=== PATIENT | male | born 1955 | race Caucasian/White ===

== ENCOUNTER 2022-04-12 18:43 | Inpatient (IN) | payer OTHER, MEDICAID ==
[~2022-04-12] VITALS: Ht 162.6 cm; Wt 68.0 kg
[2022-04-12] MEDS ORDERED: NOREPINEPHRINE 4 MG/4 ML VIAL IV ONE ×2 (19:11→20:55)
[2022-04-12] MEDS ORDERED: NACL 0.9% 2,000 ML IV ONE (19:15)
[2022-04-12] MEDS ORDERED: NOREPINEPHRINE BITARTRATE 4 MG in NS 246 ML IV ONE (19:15)
[2022-04-12 19:24] VITALS: BP_SYST 88
--- NOTE | 2022-04-12 19:30 | NUR ---
PT BIBA FROM SNF FOR RESP DISTRESS REPORT RECIEVED FROM DAY [facility] DR. REEVES AT BEDSIDE RT AT BEDSIDE PT PLACED ON 15L O2 NRB O2SAT 80% DR. REEVES DISCUSSING CODE STATUS WITH FAMILY
[2022-04-12 19:33] LABS: BASOPHILS % (AUTO) 0.3 % (0.0-2.0); EOSINOPHILS # (AUTO) 0.2 K/uL (0.0-0.4); EOSINOPHILS % (AUTO) 2.9 % (0.0-4.0); HEMATOCRIT 26.9 % (36-54); HEMOGLOBIN 8.9 g/dL (14.0-18.0); LYMPHOCYTES # (AUTO) 0.9 K/uL (1.0-5.5); LYMPHOCYTES % (AUTO) 17.7 % (20.5-51.5); MEAN CORPUSCULAR HEMOGLOBIN 29 pg (27-31); MEAN CORPUSCULAR HGB CONC 33 % (32-36); MEAN CORPUSCULAR VOLUME 88 fL (79.0-98.0); MONOCYTES # (AUTO) 0.4 K/uL (0.0-1.0); MONOCYTES % (AUTO) 7.6 % (1.7-9.3); NEUTROPHILS # (AUTO) 3.7 K/uL (1.8-7.7); NEUTROPHILS % (AUTO) 71.5 % (40.0-70.0); PLATELET COUNT (AUTO) 218 K/uL (130-430); RED BLOOD CELL COUNT(AUTO) 3.04 MIL/uL (4.2-6.2); RED CELL DISTRIBUTION WIDTH 16.4 % (9.0-15.0); WHITE BLOOD COUNT (AUTO) 5.2 K/uL (4.8-10.8)
[2022-04-12 19:47] LABS: ANION GAP 9 (5-15); CALCIUM 8.7 mg/dL (8.4-11.0); CHLORIDE 98 mmol/L (98-107); CREATININE 1.37 mg/dL (0.55-1.30); GLUCOSE 281 mg/dL (70-99); UREA NITROGEN, BLOOD 45 mg/dL (8-21)
[2022-04-12 19:49] LABS: GFR AFRICAN AMERICAN 67 mL/min (>90)
[2022-04-12 19:53] LABS: ALANINE AMINOTRANSFERASE 18 U/L (12-78); ALBUMIN 2.3 g/dL (3.4-4.8); ASPARTATE AMINOTRANSFERASE 15 U/L (10-37); TOTAL BILIRUBIN 0.4 mg/dL (0.0-1.0)
--- NOTE | 2022-04-12 20:00 | NUR ---
PT PLACED ON BIPAP O2 SAT IMPROVED TO 90%
--- NOTE | 2022-04-12 20:10 | NUR ---
PER FAMILY PT AT SNF FOR MULTIPLE CVA AFFECTING ADLS. PT NONVERBAL AT THIS TIME
--- NOTE | 2022-04-12 20:30 | NUR ---
FAMILY AT BEDSIDE
--- NOTE | 2022-04-12 20:52 | NUR ---
MRSA COVID URINE DONE
[2022-04-12] MEDS ORDERED: cefTRIAXone 1 GM IVPB PREMIX 50 ML IV ONE (21:00)
[2022-04-12 21:18] LABS: BILIRUBIN,URINE NEGATIVE (NEGATIVE); BLOOD, URINE NEGATIVE (NEGATIVE); CLARITY/URINE CLEAR (CLEAR); COLOR,URINE YELLOW (YELLOW); GLUCOSE,URINE 1+ (NEGATIVE); KETONES,URINE NEGATIVE (NEGATIVE); LEUKOCYTE ESTERASE ,URINE NEGATIVE (NEGATIVE); NITRITE, URINE NEGATIVE (NEGATIVE); PH,URINE 8.5 (5.0-8.0); PROTEIN URINE 2+ (NEGATIVE)
[2022-04-12 21:25] LABS: BACTERIA,URINE None Seen /HPF (None Seen); MUCUS,URINE None Seen /LPF (None Seen); RBC,URINE 0-3 /HPF (0-3); WBC,URINE 0-3 /HPF (0-3)
--- NOTE | 2022-04-12 22:00 | NUR ---
ASSUME CARE OF THIS PATIENT AWAKE AND ALERT, NO S/S DISTRESS AT THIS TIME ON BIPAP SUPPORT. NOTED LEVOPHED DRIP PER PROTOCOL.
--- NOTE | 2022-04-12 22:15 | NUR ---
PT REPOSITIONED TO RIGHT SIDE, NOTED PRESSURE ULCER STAGE 3 TO COCCYX AND LT UPPER BACK AREA.
--- NOTE | 2022-04-12 22:20 | NUR ---
Jose ellsworth in [facility] - 04/13/22 at 0023 by [email or web address] PT BLOOD GLUCOSE 199
[2022-04-12] MEDS ORDERED: POTASSIUM CHLORIDE 20 MEQ TAB.PRT.SR PO PRN (22:30)
[2022-04-12] MEDS ORDERED: ACETAMINOPHEN 325 MG TABLET PO PRN (22:30)
[2022-04-12] MEDS ORDERED: ONDANSETRON HCL 4 MG/2 ML VIAL IVP PRN (22:30)
[2022-04-12] MEDS ORDERED: DEXTROSE 50% JECT 50 ML DISP.SYRIN IVP PRN (22:30)
[2022-04-12] MEDS ORDERED: MUPIROCIN 2% TOPICAL OINTMENT 22 GM NS PRN (22:30)
[2022-04-12] MEDS ORDERED: ZOLPIDEM TARTRATE 5 MG TABLET PO PRN (22:30)
[2022-04-12] MEDS ORDERED: LORazepam 2 MG/ML VIAL IVP PRN (22:30)
[2022-04-12] MEDS ORDERED: MORPHINE 2 MG/ML INJ. SYRINGE IVP PRN ×2 (22:30)
[2022-04-12] MEDS ORDERED: MAGNESIUM SULFATE 50 ML IV PRN (22:30)
[2022-04-12] MEDS ORDERED: DOCUSATE SODIUM 100 MG CAPSULE PO PRN (22:30)
[2022-04-12] MEDS: PIPERACILLIN/TAZOBACTAM 2.25 GM in NS 50 ML IV SCH (22:30)
--- NOTE | 2022-04-12 23:00 | NUR ---
PT MEDICATED PER EMAR. WILL CONTINUE TO MONITOR. VSS AT THIS TIME
[2022-04-12] MEDS ORDERED: PIPERACILLIN/TAZOBACTAM 2.25 GM VIAL IV ONE (23:14)
--- NOTE | 2022-04-12 23:20 | NUR ---
PT BLOOD GLUCOSE 199
[2022-04-12] MEDS: FUROSEMIDE 40 MG/4 ML VIAL IVP SCH (23:45)
[2022-04-13] VITALS (13 sets, daily range): BP systolic 96–131
--- NOTE | 2022-04-13 00:23 | NUR ---
REQUESTED AND GIVEN ANOTHER BLANKET REMAINS WITHOUT C/O PAIN.
[2022-04-13] MEDS: INSULIN LISPRO SLIDING SCALE 100 UNITS/ML, 3 ML VIAL (humaLOG) SUBCUT PRN ×4 (01:48→20:57)
--- NOTE | 2022-04-13 04:17 | NUR ---
WOUND/PRESSURE ULCER STAGE 3 TO COCCYX CLEANES WITH NS PAT DRY, WOUND CULTUE DONE AND SPECIMEN SENT TO LAB
[2022-04-13] MEDS: PIPERACILLIN/TAZOBACTAM 2.25 GM in NS 50 ML IV SCH ×4 (04:27→22:44)
--- NOTE | 2022-04-13 05:04 | NUR ---
CALLED AND SPOKE WITH DR. NARANJO AND INFORMED MD ON PT CURRENT BP OF 91/44. PER MD RE START LEVOPHED DRIP
[2022-04-13] MEDS ORDERED: NOREPINEPHRINE BITARTRATE 4 MG in D5W 246 ML IV PRN (05:15)
[2022-04-13] MEDS ORDERED: NOREPINEPHRINE 4 MG/4 ML VIAL IV ONE (05:24)
--- NOTE | 2022-04-13 07:40 | NUR ---
RECEIVED PT FROM NOC SHIFT RN. ASSUMED CARE. PT IS RESPONSIVE TO PAIN, PERRL. TELEMONITOR IN PLACE READING NSR, PT RECEIVING LEVOPHED AT O.1MCG/KG/MIN. ON BIBPAP- IPAP 14, EPAP 7, RR 16. RESP E/U. SHALLOW. LUNG SOUNDS DIMINISHED BILATERALLY. GTUBE IN PLACE, CLAMPED, SITE WNL. ABDOMEN SOFT, NONTENDER. PERIPHERAL PULSES NORMAL. PT HAS LIBERTY PICC LINE 2 LUMENS. SITE WNL. RFA IV CATH [address] FLUSHED AND PATENT[address] LEONARDO CATH IN PLACE DRAINING CLEAR DARK YELLOW URINE TO GRAVITY. STAT LOCK IN PLACE TO R THIGH. NO S/S OF PAIN OR DISCOMFORT NOTED. SIDERAILS UP X2.
--- NOTE | 2022-04-13 07:49 | NUR ---
B/P 171/98 (139). LEVOPHED TURNED OFF.
[2022-04-13 07:59] LABS: EOSINOPHILS # (AUTO) 0.1 K/uL (0.0-0.4); EOSINOPHILS % (AUTO) 2.3 % (0.0-4.0); HEMATOCRIT 25.6 % (36-54); HEMOGLOBIN 8.5 g/dL (14.0-18.0); LYMPHOCYTES # (AUTO) 1.3 K/uL (1.0-5.5); LYMPHOCYTES % (AUTO) 21.2 % (20.5-51.5); MEAN CORPUSCULAR HEMOGLOBIN 29 pg (27-31); MEAN CORPUSCULAR HGB CONC 33 % (32-36); MEAN CORPUSCULAR VOLUME 88 fL (79.0-98.0); MONOCYTES # (AUTO) 0.6 K/uL (0.0-1.0); MONOCYTES % (AUTO) 10.3 % (1.7-9.3); PLATELET COUNT (AUTO) 211 K/uL (130-430); RED CELL DISTRIBUTION WIDTH 16.7 % (9.0-15.0); WHITE BLOOD COUNT (AUTO) 6.1 K/uL (4.8-10.8)
[2022-04-13] MEDS ORDERED: ONDA4VIA53 GT (08:42)
[2022-04-13] MEDS ORDERED: APIX5TAB4 GT (08:42)
[2022-04-13] MEDS ORDERED: BISA10SU8 (08:42)
[2022-04-13] MEDS ORDERED: NIFE20CA GT (08:42)
[2022-04-13] MEDS ORDERED: VANC1.2525 IV (08:42)
[2022-04-13] MEDS ORDERED: CARV10CP7 GT (08:42)
[2022-04-13] MEDS ORDERED: FERR300S GT (08:42)
[2022-04-13] MEDS ORDERED: INSU100V46 (08:42)
[2022-04-13] MEDS ORDERED: MUC20RT MC (08:42)
[2022-04-13] MEDS ORDERED: ASCO500C18 GT (08:42)
[2022-04-13] MEDS ORDERED: IPRA3AMP9 INH (08:42)
[2022-04-13] MEDS ORDERED: FAMO-268 GT (08:42)
[2022-04-13] MEDS ORDERED: SENN-169 GT (08:42)
[2022-04-13] MEDS ORDERED: DOCU50CA7 GT (08:42)
[2022-04-13] MEDS ORDERED: ATOR40TA68 GT (08:42)
[2022-04-13] MEDS ORDERED: POLY17PO21 GT (08:42)
--- NOTE | 2022-04-13 08:42 | NUR ---
Medication reconciliation completed with information provided by [facility] SUMMARY REPORT. Any prior medication reconciliation on file was reviewed and corrected.
[2022-04-13 08:50] LABS: CALCIUM 9.3 mg/dL (8.4-11.0); CREATININE 1.31 mg/dL (0.55-1.30)
--- NOTE | 2022-04-13 09:35 | NUR ---
PT'S O2 SAT 100%, R/T PLACED FIO2 AT 85% AT THIS TIME.
[2022-04-13 09:39] LABS: BASOPHILS % (AUTO) 0.4 % (0.0-2.0); NEUTROPHILS # (AUTO) 4.1 K/uL (1.8-7.7); NEUTROPHILS % (AUTO) 65.8 % (40.0-70.0)
[2022-04-13] MEDS: FUROSEMIDE 40 MG/4 ML VIAL IVP SCH (09:59)
--- NOTE | 2022-04-13 10:01 | NUR ---
HEPARIN HELD, NO COAGS COMPLETED. ORDERED AT THIS TIME. LASIX IVP GIVEN.
[2022-04-13 10:35] LABS: INR 1.1 (0.80-1.20); PROTHROMBIN TIME 11.7 SECS (9.5-12.5)
[2022-04-13] MEDS ORDERED: PIPERACILLIN/TAZOBACTAM 2.25 GM VIAL IV ONE (11:29)
[2022-04-13] MEDS: HEPARIN SODIUM,PORCINE 5,000 UNITS/ML VIAL SUBCUT SCH ×2 (11:50→20:53)
--- NOTE | 2022-04-13 11:53 | NUR ---
BS 240. REGULAR INSULIN 4 UNITS HELD. PT'S ON BIPAP AND UNABLE TO EAT AT THIS TIME.
--- NOTE | 2022-04-13 12:35 | NUR ---
Patient will be admitted to care of EDGAR STEELE. Admitted to ICU unit. Will go to room 7. Belongings list completed. Complete and up to date summary report printed. SBAR report to be given at bedside with opportunity for questions.
--- NOTE | 2022-04-13 12:40 | NUR ---
Opening note - received patient from E.D. Report from Ivan HERNÁNDEZ, Patient is a 66 year old male that was admitted to [facility] on 04/12 for worsening SOB at [facility]. He was overall declining, lethargic, and distressed. Dx: hypovolemic shock. PMHX: CVA, DVT, dyslipidemia, insulin dependent diabetic, hx afib. On arrival patient was saturating in the 60's was placed on a NRB, then BIPAP. He was also on Levophed for BP management of hypotension. He has a LIBERTY PICC- intact, patent, dressing CDI. PIV: RFA, RW- intact, patent, dressing CDI. No IVF or levophed anymore upon arrival. BP within normal limits. He is non verbal per family he shakes his head and squeezes his hands to indicate what he wants in [facility]. At this time he is asleep on Bipap 13/7 70%. Bradycardia on monitor NSR 57bmp. He has had two large bowel movements on arrival to ICU. chronic g-tube- pending dietary recommendations for feeding. NPO at this time. Gould inserted in E.D. 04/12- intact and draining via gravity. Skin- sacrum stage 2- wound care consulted. Family pending arrival.
--- NOTE | 2022-04-13 13:30 | NUR ---
RT NOTES FIO2 TO 0.70
--- NOTE | 2022-04-13 15:49 | NUR ---
Nutrition Note: RD rounded to ICU and s/w patient RN. Patient is currently NPO, and RN asked for TF recommendations. Estimated nutritional needs based on the following information from h&p: He is bedbound with history of CVA, DVT, dyslipidemia, insulin-dependent diabetic and AFib. Patient is also documented with Stage [address] called ICU and provided verbal recommendations for EN and wound supplements to RN via phone. Nutritional Needs: Estimated Energy Expenditure (kcals/day) 3873-8483 (30-35 kcal/kg for Stage 3 wound healing) Estimated Protein Required (g/day) 82-122 (1.2-1.5 gm/kg for Stage 3 wound healing) Estimated Fluid Required (l/day) 2-2.4 (30-35 mL/kcal for losses from Stage 3 wound) Dietitian Recommendations: * Recommend initiate Glucerna 1.5 at 55mL/hr (goal rate), Min BID; FWF 200mL Q4h via GT Provides daily: 2160 kcals, 114g PRO, 2202 mL Free Water (1002mL EN) Meets: 106% lower kcals, 93% upper PRO, 110% lower fluids * Recommend initiate wound supplements to promote wound healing and reduce LOS: Consider: 500mg VIT C BID, 220mg ZnSO4 BID x 14 days, daily MVI Patient will be seen 04/14 for initial nutrition assessment, per nutrition protocol. Jennie Dailey MPH, RDN
--- NOTE | 2022-04-13 16:12 | NUR ---
Dr. Hinojosa rounded- aware of patient status, spoke with daughter and at bedside. Spoke about intubation vs bipap. Plan is to keep him on Bipap now, intubation if he worsens. NS to start at 50cc/hr. RT aware of patient status.
[2022-04-13] MEDS: NACL 0.9% 1,000 ML IV SCH (17:41)
[2022-04-14] VITALS (24 sets, daily range): BP systolic 95–154
[2022-04-14] MEDS: PIPERACILLIN/TAZOBACTAM 2.25 GM in NS 50 ML IV SCH ×3 (05:00→17:23)
[2022-04-14 07:37] LABS: BASOPHILS # (AUTO) 0.1 K/uL (0.0-0.2); BASOPHILS % (AUTO) 1.2 % (0.0-2.0); EOSINOPHILS # (AUTO) 0.2 K/uL (0.0-0.4); EOSINOPHILS % (AUTO) 4.5 % (0.0-4.0); HEMATOCRIT 22.9 % (36-54); HEMOGLOBIN 7.6 g/dL (14.0-18.0); LYMPHOCYTES # (AUTO) 1.2 K/uL (1.0-5.5); LYMPHOCYTES % (AUTO) 25.7 % (20.5-51.5); MEAN CORPUSCULAR HEMOGLOBIN 29 pg (27-31); MEAN CORPUSCULAR HGB CONC 33 % (32-36); MEAN CORPUSCULAR VOLUME 88 fL (79.0-98.0); MONOCYTES # (AUTO) 0.4 K/uL (0.0-1.0); MONOCYTES % (AUTO) 9.1 % (1.7-9.3); NEUTROPHILS # (AUTO) 2.9 K/uL (1.8-7.7); NEUTROPHILS % (AUTO) 59.5 % (40.0-70.0); PLATELET COUNT (AUTO) 185 K/uL (130-430); RED CELL DISTRIBUTION WIDTH 16.6 % (9.0-15.0); WHITE BLOOD COUNT (AUTO) 4.8 K/uL (4.8-10.8)
--- NOTE | 2022-04-14 07:42 | NUR ---
Opening note - received patient from E.D. Report from Patricia HERNÁNDEZ NOC- Patient is a 66 year old male that was admitted to [place] on 04/12 for worsening SOB at [facility]. He was overall declining, lethargic, and distressed. Dx: hypovolemic shock. PMHX: CVA, DVT, dyslipidemia, insulin dependent diabetic, hx afib. On arrival patient was saturating in the 60's was placed on a NRB, then BIPAP. He was also on Levophed for BP management of hypotension. He has a LIBERTY PICC- intact, patent, dressing CDI. PIV: RFA, RW- intact, patent, dressing CDI. No IVF or levophed anymore upon arrival. BP within normal limits. He is non verbal per family he shakes his head and squeezes his hands to indicate what he wants in [facility]. At this time he is asleep on Bipap 13/7, rate 16, 30%. monitor NSR 65bmp. He has had two large bowel movements per tani RN. chronic g-tube- running glucerna at 40cc/hr goal is 55. Gould inserted in E.D. 04/12- intact and draining via gravity. Skin- sacrum stage 2- wound care consulted. Updated daughter this am on patient staus, all questions answered. Pending there arrival to update on patient status.
[2022-04-14 07:54] LABS: CREATININE 1.4 mg/dL (0.55-1.30)
[2022-04-14 08:09] LABS: ALBUMIN 2.2 g/dL (3.4-4.8); THYROID STIMULATING HORMONE 147.09 uIu/mL (0.36-3.74); TOTAL BILIRUBIN 0.3 mg/dL (0.0-1.0)
[2022-04-14 08:13] LABS: TOTAL IRON BIND. CAPACITY 221 ug/dL (250-450)
[2022-04-14] MEDS: FUROSEMIDE 40 MG/4 ML VIAL IVP SCH (08:20)
[2022-04-14] MEDS: HEPARIN SODIUM,PORCINE 5,000 UNITS/ML VIAL SUBCUT SCH ×2 (08:21→21:36)
[2022-04-14] MEDS: INSULIN LISPRO SLIDING SCALE 100 UNITS/ML, 3 ML VIAL (humaLOG) SUBCUT PRN ×2 (11:42→17:37)
[2022-04-14] MEDS: NACL 0.9% 1,000 ML IV SCH (11:47)
--- NOTE | 2022-04-14 13:35 | NUR ---
RT NOTES Pt is more awake, dtr at bedside. Took pt off bipap and placed on 5L oxymizer. no adverse reactions noted. rn notify to rt for any change in condition.
--- NOTE | 2022-04-14 15:00 | NUR ---
Dietitian Recommendations * Continue Glucerna 1.5 @ 55mL/hr (goal), Min BID; FWF 200mL Q4h via GT Provides daily: 2160 kcals, 114g PRO, 2202 mL Free Water (1002mL EN) Meets: 106% lower kcals, 93% upper PRO, 110% lower fluids * Recommend wound supplements to promote wound healing and reduce LOS: Consider: 500mg VIT C BID, 220mg ZnSO4 BID x 14 days, daily MVI
--- NOTE | 2022-04-14 15:52 | NUR ---
RT NOTES Pt sat 99 on 5L oxy, titrated to 3L. Pt is awake, eyes open, nodded when asked if he was ok.
--- NOTE | 2022-04-14 17:42 | NUR ---
Pulmo Rounds: Dr Hinojosa saw patient, aware of status. No changes at this time, bipap made PRN. Continue nasal canula for now. Keep overnight then patient can downgrade to telemetry.
[2022-04-15] VITALS (23 sets, daily range): BP systolic 138–165
[2022-04-15] MEDS: PIPERACILLIN/TAZOBACTAM 2.25 GM in NS 50 ML IV SCH ×5 (00:15→20:29)
[2022-04-15 06:46] LABS: EOSINOPHILS # (AUTO) 0.2 K/uL (0.0-0.4); HEMATOCRIT 23.3 % (36-54); HEMOGLOBIN 7.8 g/dL (14.0-18.0); LYMPHOCYTES # (AUTO) 1.2 K/uL (1.0-5.5); LYMPHOCYTES % (AUTO) 23.7 % (20.5-51.5); MEAN CORPUSCULAR HEMOGLOBIN 29 pg (27-31); MEAN CORPUSCULAR HGB CONC 33 % (32-36); MEAN CORPUSCULAR VOLUME 88 fL (79.0-98.0); MONOCYTES # (AUTO) 0.5 K/uL (0.0-1.0); MONOCYTES % (AUTO) 9.1 % (1.7-9.3); PLATELET COUNT (AUTO) 182 K/uL (130-430); RED BLOOD CELL COUNT(AUTO) 2.64 MIL/uL (4.2-6.2); RED CELL DISTRIBUTION WIDTH 16.5 % (9.0-15.0); WHITE BLOOD COUNT (AUTO) 5.2 K/uL (4.8-10.8)
[2022-04-15 06:52] LABS: CALCIUM 9.1 mg/dL (8.4-11.0); CREATININE 1.25 mg/dL (0.55-1.30)
--- NOTE | 2022-04-15 07:30 | NUR ---
RECEIVED PATIENT FROM NIGHT EDGAR CORTES. PATIENT IS ON OXYMIZER NASAL CANNULA 2LPM. EUPNEIC. PER REPORT PT. COUGHS UP SPUTUM, THICK BEIGE OR GREENISH, SPITS OUT SPUTUM. G-TUBE GLUCERNA 1.5 AT 55 MLS/HR. + FWF 200 MLS. Q4 HRS. + CHER BID. LEONARDO CATHETER IN SITU, YELLOW URINE. RIGHT HIPPER ARM PICC 3-LUMEN. KVF NS 50 MLS./HR. PT. OBEYS COMMANDS, ALERT ORIENTED MORE YI THAN ITALIAN PER REPORT. LEFT ARM FLACCID, LEFT HAND IN A FIST.
--- NOTE | 2022-04-15 07:50 | NUR ---
DR. MCGOVERN (BLOCK TRIMMER) ROUND NOTED THAT PT. OBEYS TO COMMAND, STICK OUT HIS TONGUE, BUT SLOW TO RESPOND. STABLE, OKAY FOR TRANSFER OUT OF THE ICU.
[2022-04-15 08:00] LABS: BASOPHILS % (AUTO) 0.7 % (0.0-2.0); NEUTROPHILS # (AUTO) 3.3 K/uL (1.8-7.7); NEUTROPHILS % (AUTO) 62.5 % (40.0-70.0)
[2022-04-15] MEDS: FUROSEMIDE 40 MG/4 ML VIAL IVP SCH (09:20)
[2022-04-15] MEDS: HEPARIN SODIUM,PORCINE 5,000 UNITS/ML VIAL SUBCUT SCH ×2 (09:21→20:27)
[2022-04-15] MEDS: NACL 0.9% 1,000 ML IV SCH (09:23)
--- NOTE | 2022-04-15 10:45 | NUR ---
DR. MATIAS (INFORMATION TECHNOLOGY ADVISOR/ICU MD) ROUNDED NOTED THAT PATIENT IS STABLE, OKAY TO GO OUT OF ICU.
[2022-04-15] MEDS: INSULIN LISPRO SLIDING SCALE 100 UNITS/ML, 3 ML VIAL (humaLOG) SUBCUT PRN ×3 (12:56→21:22)
--- NOTE | 2022-04-15 19:00 | NUR ---
PT. FOR TRANSFER OUT TO [facility], ROOM 2207. INFORMED DALLAS DURHAM URDU SPEAKING ONLY, PHONE WAS GIVEN TO YOUNGEST DAUGHTER DOTTIE DURHAM, WHO OKAYED FOR TRANSFER OUT. COMMACK PHONE [phone]
--- NOTE | 2022-04-15 19:59 | NUR ---
Yolis from [facility], called. Vital signs reported. Patient to be transported tonight. No distress noted.
[2022-04-15] MEDS ORDERED: hydrALAZINE HCL 20 MG/ML VIAL IVP ONE (21:15)
[2022-04-15] MEDS ORDERED: hydrALAZINE HCL 20 MG/ML VIAL ONE (21:16)
--- NOTE | 2022-04-15 21:33 | NUR ---
Report given to [facility], Ray, EMT for continuity of care and transfer to [facility]. Patient BP stabilized per medication regimen and physician protocol.
--- NOTE | 2022-04-15 21:34 | NUR ---
Spoke with patient's daughter, Teodora Foley for patient to go to room 2210 telemetry at [facility].
--- NOTE | 2022-04-15 21:47 | NUR ---
Report given to Magaly, RN for continuity of care to [facility] in room 2210. Patient in stable condition. No active distress noted. Patient on oxygen via NC high flow at 1L. Patient aware of transfer and packet sent with patient. Teodora Foley, patient's daughter, made aware of transfer.
--- NOTE | 2022-04-15 22:14 | NUR ---
Patient transferred to [facility]. Family made aware of room number and unit. Patient transferred via gurney through [facility] and packet with patient. No imminent distress noted. Patient blood pressure and pain managed prior to transfer. Endorsed care to EDGAR Mckenzie for continuity of care at [facility].
[2022-04-16] MEDS ORDERED: LEVOTHYROXINE SODIUM 0.05 MG TABLET PO SCH (09:00)
== END 2022-04-15 21:37 | disposition short-term general hospital (02) | DRG 871 ==
LOC: SED 18:43 → SIC 22:48
PROVIDERS: ADMIT General Practice; ATTEND General Practice
PROC: 5A09357 Assistance with Respiratory Ventilation, Less than 24 Consecutive Hours, Continuous Positive Airway Pressure (ICD-10-PCS; principal; 2022-04-12)
PROC: 5A09357 Assistance with Respiratory Ventilation, Less than 24 Consecutive Hours, Continuous Positive Airway Pressure (ICD-10-PCS; 2022-04-13)
PROC: 5A09357 Assistance with Respiratory Ventilation, Less than 24 Consecutive Hours, Continuous Positive Airway Pressure (ICD-10-PCS; 2022-04-14)
DX: A41.9 Sepsis, unspecified organism (principal); J69.0 Pneumonitis due to inhalation of food and vomit; R57.1 Hypovolemic shock; R65.21 Severe sepsis with septic shock; J96.21 Acute and chronic respiratory failure with hypoxia; I69.354 Hemiplegia and hemiparesis following cerebral infarction affecting left non-dominant side; J44.1 Chronic obstructive pulmonary disease with (acute) exacerbation; J44.0 Chronic obstructive pulmonary disease with (acute) lower respiratory infection; I48.20 Chronic atrial fibrillation, unspecified; I42.9 Cardiomyopathy, unspecified; G93.40 Encephalopathy, unspecified; R13.10 Dysphagia, unspecified; Z20.822 Contact with and (suspected) exposure to COVID-19; N28.9 Disorder of kidney and ureter, unspecified; I10 Essential (primary) hypertension; E11.9 Type 2 diabetes mellitus without complications; E78.5 Hyperlipidemia, unspecified; D63.8 Anemia in other chronic diseases classified elsewhere; Z79.4 Long term (current) use of insulin; Z74.01 Bed confinement status; Z86.718 Personal history of other venous thrombosis and embolism; Z79.01 Long term (current) use of anticoagulants; Z87.891 Personal history of nicotine dependence; Z79.899 Other long term (current) drug therapy; Z93.1 Gastrostomy status
CPT/HCPCS: 36415; 36600; 71045; 76770; 80048; 80053; 81000; 82803-TC; 82962; 83036; 83540; 83550; 83605; 83735; 83880; 84439; 84443; 84484; 85025; 85610-TC; 85730-TC; 87040; 87081; 93005; 93306; 94660; 96365; 96367; 99291; J0360; J0696; J1644; J1940; J2270; J2543; J7030